=== PATIENT | female | born 1970 | race Caucasian/White ===

== ENCOUNTER 2021-12-18 17:56 | Emergency (ER) | payer BC, SELFPAY ==
[2021-12-18 18:00] VITALS: BP 144/80; PULSE 89; RESP 20; TEMP 36.7; O2SAT 96; BMI 34.5
--- NOTE | 2021-12-18 18:16 | HMH.EDUTC ---
[facility] [place] Clinical Impression: Otitis media Qualifiers: Otitis media type: unspecified Laterality: right Qualified Code(s): H66.91 - Otitis media, unspecified, right ear Disposition: Home, Self-Care Condition on Discharge: Good Instructions: Middle Ear Infection, Amoxicillin Additional Instructions: *Monitor Temp, Over the counter Motrin or Tylenol as directed/as needed Tylenol every 4 hours and Motrin every 6 hours (as long as your family doctor has told you that you can take it) for fever or pain. and straight to ER if unable to lower temp less than 101.0 after medication given Take medication as prescribed *Sleep elevated *Humidifier/Vaporizer Follow up IMMEDIATELY for new or worsening symptoms or no Noticeable improvement over the next 48-72 hours. 911 for difficulty breathing or swallowing Prescriptions: Amoxicillin [Amoxicillin 875MG Tab] 875 mg PO Q12H #20 tab Transmission Status: Pending to [id number] [place] [facility] methylPREDNISolone [Medrol 4mg tab] 4 mg PO DIRECTED #21 tab Transmission Status: Pending to [id number] Referrals: Aman Cantu [Primary Care Provider] - As needed Time of Disposition: 18:21 Medical Decision Making - [place] Inquiry Pt receiving controlled substance: No [place] was queried for this patient: No Vital Signs: 12/18/21 18:00 Temperature 98.0 F Temperature Source Oral Pulse Rate [Left Brachial] 89 Respiratory Rate 20 Blood Pressure [Left Arm] 144/80 H Blood Pressure Mean [Left Arm] 101 Blood Pressure Source [Left Arm] Automatic Cuff Blood Pressure Position [Left Arm] Sitting 02 Sat by Pulse Oximetry 96 Oxygen Delivery Method Room Air [facility] [place] - General Stated complaint: right ear pain Time Seen by Provider: 12/18/21 18:16 Mode of Arrival: Ambulatory Source of Information: Patient Limitations: No Limitations Description of Symptoms (Recalled from Triage Doc. by RN): PATIENT C/O RIGHT EAR PAIN X 2 DAYS, WORSE THIS MORNING HEENT Symptoms (Recalled from RN notes): Yes Resp Symptoms (Recalled from RN notes): No Skin Symptoms (Recalled from RN notes): No MS Symptoms (Recalled from RN notes): No Functional Status (Recalled from RN notes): WNL - History of Present Illness Provider Complaint: Patient states that she has been having pain in her right ear for 2 days that has continued to get worse State that she feels like the ear is full and muffled and pain shooting through it so this evening when it was still hurting she came in - Related Data Home Medications Medication Instructions Recorded Confirmed omeprazole 20 mg capsule,delayed 20 mg PO DAILY 01/13/18 01/10/20 release Previous Rx's Medication Instructions Recorded phentermine 37.5 mg tablet 37.5 mg PO DAILY #30 tab 01/10/20 Amoxicillin [Amoxicillin 875MG 875 mg PO Q12H #20 tab 12/18/21 Tab] methylPREDNISolone [Medrol 4mg 4 mg PO DIRECTED #21 tab 12/18/21 tab] Allergies Allergy/AdvReac Type Severity Reaction Status Date / Time No Known Allergies Allergy Verified 01/10/20 15:42 - Worker's Comp Is this a Worker's Comp case?: No [facility] History - Hepatitis A Screen Attestation statement:: This patient has been screened for Hepatitis A risk factors. I have reviewed the patient's past medical history: Yes Medical History: Reports:: Hypertension Denies:: Anxiety, Depression, Diabetes Mellitus Type 1, Hyperlipidemia, Migraine, MRSA Other Surgeries: Yes: No Previous Surgery, Cholecystectomy, , Hysterectomy-Total, Hysterectomy-Partial Amputation: No Fractures: No - Social History Smoking Status: Never smoker Alcohol Intake: never Substance Use Type: denies use Occupational Status: other Housing: house Household Members: children, spouse - Psychiatric History Pschychiatric History:: Denies:: Anxiety, Depression Family Hx:: Cancer, Diabetes, Heart Attack, Tuberculosis, Thyroid Disorder, Hypertension, Hyperl
[2021-12-18 18:22] VITALS: BP 144/80; PULSE 89; RESP 20; TEMP 36.7; O2SAT 96
== END 2021-12-18 18:26 | disposition home or self-care (01) ==
PROVIDERS: Emergency Provider Nurse Practitioner; PCP Pediatrics
DX: H66.91 Otitis media, unspecified, right ear (principal)
CPT/HCPCS: 99212; G0463

== ENCOUNTER → 2022-04-24 11:01 | Outpatient (CLI) | payer BC, SELFPAY ==
--- NOTE | 2022-04-24 11:01 | MM_ITS ---
PROCEDURE INFORMATION: Exam: MG Bilateral Screening 3D Mammography Exam date and time: 04/24/2022 10:56 AM Age: 52 years old Clinical indication: Screening examination; Additional info: Screening mammogram TECHNIQUE: Imaging protocol: Bilateral Screening tomosynthesis and 2D mammography including computer-aided detection (CAD) when performed. COMPARISON: 1. MG DMSB DIG MAMM-SCREEN RANDEE 05/03/2016 11:04 AM 2. MG DMSB DIG MAMM-SCREEN RANDEE 03/17/2015 2:37 PM FINDINGS: MAMMOGRAPHY: Breast composition: There are scattered areas of fibroglandular density. Mass: No suspicious mass. Architectural distortion: None. Calcifications: No suspicious calcifications. Asymmetric density: None. Skin thickening: None. Axillary adenopathy: None. IMPRESSION: No mammographic evidence of malignancy. Annual screening is recommended unless otherwise clinically indicated. ASSESSMENT: BI-RADS Category 1: Negative
== END ==
PROVIDERS: PCP Pediatrics; Visit Provider Nurse Practitioner Obstetrics & Gynecology
DX: Z12.31 Encounter for screening mammogram for malignant neoplasm of breast (principal)
CPT/HCPCS: 77063; 77067

== ENCOUNTER → 2022-05-03 09:34 | Outpatient (CLI) | payer BC, SELFPAY ==
[2022-05-03 09:45] LABS: MANUAL DIFFERENTIAL MANUAL DIFFERENTIAL (MANUAL DIFF)
[2022-05-03 10:08] LABS: Basophils # 0.1 K/mm3 (0-0.2); Basophils % 2.5 % (0.1-2.0); Eosinophils % 1.1 % (0.1-12.0); Hematocrit 41.6 % (37.0-47.0); Hemoglobin 13.7 g/dL (12.2-16.2); Lymphocytes # 0.8 K/mm3 (0.7-4.5); Lymphocytes % 22.2 % (10-50); Mean Corpuscular HGB Conc 32.9 g/dL (31.8-35.4); Mean Corpuscular Hemoglobin 29.8 pg (27.0-31.2); Mean Corpuscular Volume 90.6 fl (81-99); Mean Platelet Volume 8.1 fl (7.4-10.4); Monocytes # 0.4 K/mm3 (0.1-1.0); Monocytes % 10.6 % (1.7-9.3); Neutrophils # 2.3 K/mm3 (1.8-7.8); Neutrophils % 63.6 % (37.0-80.0); Platelet Count 240 K/mm3 (142-424); Red Cell Distribution Width 14.2 % (11.5-17.5); White Blood Count 3.6 K/mm3 (4.8-10.8)
[2022-05-03 11:05] LABS: Alanine Aminotransferase 41 U/L (12-78); Albumin Level 4.3 g/dl (3.5-5.0); Albumin/Globulin Ratio 1.5 (1.1-1.8); Alkaline Phosphatase 116 U/L (38-126); Anion Gap 10.7 mEq/L (5-15); Aspartate Amino Transferase 42 U/L (14-36); Bilirubin,Total 0.4 mg/dl (0.2-1.3); Blood Urea Nitrogen 15 mg/dl (7-17); Calcium 9.6 mg/dl (8.4-10.2); Carbon Dioxide 27 mmol/L (22.0-30.0); Chloride 105 mmol/L (98-107); Estimated Glomerular Filt Rate 66 ml/min (>60); GFR (African American) 80 ML/MIN (>60); Globulin 2.8 g/dL (1.3-3.2); Glucose 91 mg/dl (74-100); Potassium 4.7 mmoL/L (3.5-5.1); Sodium 138 mmol/L (136-145); Total Protein,Serum 7.1 g/dl (6.3-8.2)
[2022-05-03 11:36] LABS: Thyroid Stimulating Hormone 2.69 uIU/mL (0.465-4.68)
[2022-05-03 14:15] LABS: Eosinophils % 1 % (0-3); Lymphocytes % 25 % (10-50); Monocytes % 12 % (2-9); Neutrophils % 62 % (42-76); Total Cells Counted 100
[2022-05-03 14:16] LABS: Platelet Estimate Normal; RBC Morphology Normal
[2022-05-04 08:20] LABS: FSH 42.8 mIU/mL (.); LH 27.8 mIU/mL (.)
== END ==
PROVIDERS: PCP Family Medicine; Visit Provider Nurse Practitioner Obstetrics & Gynecology
DX: R53.83 Other fatigue (principal); R63.5 Abnormal weight gain
CPT/HCPCS: 36415; 80053; 83001; 83002; 84443; 85007; 85014; 85018; 85048; 85049

== ENCOUNTER 2022-05-28 13:35 | Emergency (ER) | payer BC, SELFPAY ==
--- NOTE | 2022-05-28 15:27 | EXP.UTC ---
Discharge Plan Disposition Patient Disposition: Home, Self-Care Condition: Good Prescriptions Prescriptions: New amoxicillin [amoxicillin] 500 mg tablet 500 mg PO TID 10 Days Qty: 30 0RF benzonatate [benzonatate] 100 mg capsule 100 mg PO TIDP PRN (Reason: Cough) Qty: 30 0RF nubpboqf-qjgnrxbys-FE 3.5-10,000-1 mg/mL-unit/mL-% drops,suspension 4 drp Ear-Right TID 7 Days Qty: 10 0RF cefdinir 300 mg capsule 300 mg PO BID Qty: 20 0RF No Action phentermine [Adipex-P] 37.5 mg tablet 37.5 mg PO DAILY Qty: 30 0RF Rx Instructions: must administer 30 minutes before or 1-2 hours after breakfast estradiol 0.05 mg/24 hr patch semiweekly 1 patch topical .TWICE WEEKLY 28 Days Qty: 8 11RF Referrals Follow up/Referrals: Justin Cruz MD [Primary Care Provider] - See instructions Activity Restrictions/Add. Instructions Additional Instructions/Restrictions: Drink plenty of fluids. Take tylenol or ibuprofen for pain or fever. Take the medications as directed. Follow up with your regular doctor. GO TO THE ER FOR ANY WORSENING SYMPTOMS Clinical Impressions Clinical Impression: Otitis media, Strep throat Instructions Patient Instructions: Strep Throat, DI for Strep Throat Discharge ED Provider: Kyle Brown [facility] General Stated complaint: Ear pain, trouble hearing Time Seen by Provider: 05/28/22 15:27 History of Present Illness Provider Complaint: She c/o right ear pain and decreased hearing in that ear for the past 2 days. She also has sinus congestion and a cough from sinus drainage. Her and her son were both diagnosed with strep throat today. Related Data Previous Rx's Medication Instructions Recorded phentermine 37.5 mg tablet 37.5 mg PO DAILY #30 tabs 04/30/22 (Adipex-P) estradiol 0.05 mg/24 hr semiweekly 1 patch topical .TWICE WEEKLY 28 05/13/22 transdermal patch days #8 ea amoxicillin 500 mg tablet 500 mg PO TID 10 days #30 tabs 05/28/22 benzonatate 100 mg capsule 100 mg PO TIDP PRN Cough #30 caps 05/28/22 cefdinir 300 mg capsule 300 mg PO BID #20 caps 05/28/22 shvhnoes-axofzmjzg-xqatebsty 3.5 4 drp Ear-Right TID 7 days #10 mL 05/28/22 mg-10,000 unit/mL-1 % ear drops,susp Allergies Allergy/AdvReac Type Severity Reaction Status Date / Time No Known Allergies Allergy Verified 05/28/22 15:33 [facility] Disclaimer: The information contained in this section may have been updated after the patient was seen, as this information can be updated by other users. Surgical History History of [facility] History of right salpingo-oophorectomy Social History Smoking Status: Never smoker alcohol intake: never substance use type: denies use current occupational status: other Travel in the last 8 weeks: None household members: spouse and children housing: house ROS Obtained: Yes All systems reviewed & no additional complaints except as documented Constitutional Constitutional: Denies chills, Reports fever(s) and Reports poor appetite Eyes Eyes: Denies eye discharge ENT Ears, Nose, Mouth, and Throat: Denies ear discharge, Reports otalgia, Denies hearing loss, Denies sinus pain and Reports sore throat Cardiovascular Cardiovascular: Denies chest pain and Denies dyspnea Respiratory Respiratory: Denies chest congestion, Reports cough and Denies dyspnea Gastrointestinal Gastrointestingal: Denies abdominal pain, diarrhea, nausea or vomiting Musculoskeletal Musculoskeletal: Denies arthralgias Integumentary/Breasts Skin/Breast: Denies rash Physical Exam General General appearance: alert and in no apparent distress Head Head exam: atraumatic, normocephalic and normal inspection Eye Eye exam: Present normal appearance; Absent PERRL or EOMI ENT ENT exam: Present mucous membranes moist and normal external ear exam Expanded ENT Exa
[2022-05-28 15:30] VITALS: BP 143/83; PULSE 88; RESP 18; TEMP 37; O2SAT 99; BMI 35.9
[2022-05-28 16:11] VITALS: BP 143/83; PULSE 88; RESP 18; TEMP 37
== END 2022-05-28 16:20 | disposition home or self-care (01) ==
PROVIDERS: Emergency Provider Nurse Practitioner Family; PCP Pediatrics
DX: H66.90 Otitis media, unspecified, unspecified ear (principal); J02.0 Streptococcal pharyngitis
CPT/HCPCS: 99212; G0463

== ENCOUNTER 2023-09-25 11:10 | Outpatient (CLI) | payer BC, SELFPAY ==
--- NOTE | 2023-09-25 11:11 | MM_ITS ---
PROCEDURE INFORMATION: Exam: MG Bilateral Screening 3D Mammography Exam date and time: 09/25/2023 11:03 AM Age: 53 years old Clinical indication: Screening examination TECHNIQUE: Imaging protocol: Bilateral Screening tomosynthesis and 2D mammography including computer-aided detection (CAD) when performed. COMPARISON: 1. MG MM DIG SCREENING MAMM BI W/CAD 04/24/2022 10:56 AM 2. MG DMSB DIG MAMM-SCREEN RANDEE 05/03/2016 11:04 AM FINDINGS: MAMMOGRAPHY: Breast composition: There are scattered areas of fibroglandular density. Mass: None. Architectural distortion: None. Calcifications: No suspicious calcifications. Asymmetric density: None. Skin thickening: None. Axillary adenopathy: None. IMPRESSION: No mammographic evidence of malignancy. Annual screening is recommended unless otherwise clinically indicated. ASSESSMENT: BI-RADS Category 1: Negative
== END 2023-09-25 23:59 | disposition home or self-care (01) ==
LOC: RAD 11:11
PROVIDERS: PCP Pediatrics; Visit Provider Nurse Practitioner Obstetrics & Gynecology
DX: Z12.31 Encounter for screening mammogram for malignant neoplasm of breast (principal)
CPT/HCPCS: 77063; 77067